=== PATIENT | female | born 1975 | race Caucasian/White ===

== ENCOUNTER → 2025-03-24 | Outpatient (CLI) | payer MEDICAID, SELFPAY ==
--- NOTE | 2025-03-24 14:30 | XR_ITS ---
Examination: MRI abdomen, without contrast Date and time of exam: March 24, 2025 1553 hrs. Indications: Epigastric pain, food gets stuck in the esophagus years Technique: Multiple axial sagittal and coronal images of the abdomen without intravenous contrast have been obtained with the Siemens high-resolution 1.5 [employer] MRI scanner. Images obtained include T2-weighted fat-suppressed sagittal sections, TR 3500, TE 46, T2 weighted coronal fat suppressed images, TR 3050, TE 84, T2-weighted transverse fat suppressed images, TR 3260, TE 63, proton density transverse images, TR 4720 TE 46, and T1 weighted coronal images, TR 560, TE 13. Findings: No focal liver lesions or intrahepatic biliary tract dilatation No common hepatic or common bile duct stones. No pancreatic mass or peripancreatic edema. Spleen is not enlarged. No adrenal mass lesion. Aorta is normal in size No ascites No bowel obstruction Impression: Negative for biliary tract dilatation. No focal liver lesions. Negative for common hepatic or common bile duct stones. No ascites
== END | disposition home or self-care (01) ==
PROVIDERS: PCP Physician Assistant; Referring Provider Internal Medicine Gastroenterology; Visit Provider Internal Medicine Gastroenterology
DX: K76.0 Fatty (change of) liver, not elsewhere classified (principal); R10.31 Right lower quadrant pain
CPT/HCPCS: 74181